=== PATIENT | male | born 1955 | race Caucasian/White ===

== ENCOUNTER → 2016-11-09 | Outpatient (CLI) | payer BC ==
[~2016-11-09] MED LIST: BENZ100C84 PO; LORA10TA5 PO; MONT1TAB5 PO
[2016-11-09 09:39] LABS: HEMATOCRIT 49.3 % (42-52); MEAN CELL VOLUME 86.8 fL (80-100); MEAN CORPUSCULAR HEMOGLOBIN 30.1 pg (25-34); MEAN CORPUSCULAR HGB CONC 34.7 g/dl (32-36); MEAN PLATELET VOLUME 9.2 fL (7.4-10.4); PLATELET COUNT 155 K/uL (130-400); RED BLOOD COUNT 5.68 M/uL (4.7-6.1); WHITE BLOOD COUNT 5.75 K/uL (4.8-10.8)
[2016-11-09 09:48] LABS: ALT/SGPT 27 U/L (12-78); AST/SGOT 13 U/L (15-37); BLOOD UREA NITROGEN 17 mg/dl (7-18); BUN/CREATININE RATIO 17.8 (10-20); CALCIUM 9.4 mg/dl (8.5-10.1); CARBON DIOXIDE 33 mmol/L (21-32); CHLORIDE 105 mmol/L (98-107); CHOLESTEROL 227 mg/dl (0-200); CREATININE 0.95 mg/dl (0.60-1.40); GLUCOSE 92 mg/dl (70-99); POTASSIUM 4.5 mmol/L (3.5-5.1); SODIUM 138 mmol/L (136-145); TRIGLYCERIDES 106 mg/dl (0-150); VERY LOW DENSITY LIPOPROT CALC 21 mg/dl
[2016-11-09 09:56] LABS: ALB/GLOB RATIO 1.3 (0.9-2); ALKALINE PHOSPHATASE 72 U/L (45-117); CHOLESTEROL/HDL RATIO 4.7; HDL CHOLESTEROL 48 mg/dl; LDL CHOLESTEROL CALCULATED 158 mg/dl; PROSTATE SPECIFIC ANTIGEN 0.452 ng/ml (0.000-4.000)
== END | disposition home or self-care (01) ==
LOC: C.LAB1850 07:54
PROVIDERS: ATTEND Internal Medicine
DX: Z12.5 Encounter for screening for malignant neoplasm of prostate (principal); E78.5 Hyperlipidemia, unspecified

== ENCOUNTER 2017-07-25 16:49 | Emergency (ER) | payer BC, OTHER ==
[~2017-07-25] VITALS: Ht 193 cm; Wt 117.9 kg
[~2017-07-25 16:49] MED LIST changes: -LORA10TA5 PO; +LORA10TA6 PO
[2017-07-25 17:02] VITALS: TEMP 37.1; Ht 193 cm; Wt 117.9 kg
--- NOTE | 2017-07-25 17:18 | EMERGENCY ROOM VISIT NOTE ---
History Report prepared by Mckenna: Dean Mora Under the Supervision of: Dr. Nathan Whatley D.O. First contact with patient: 17:06 Chief Complaint: ABDOMINAL PAIN Stated Complaint: LOWER ABDOMINAL PAIN, RT SIDE Nursing Triage Summary: Patient presents ambulatory to triage with c/o abdominal pain that began last night Pain is on the right side Denies fever, nausea, vomiting, diarrhea History of Present Illness The patient is a 62 year old male who presents to the Emergency Room with complaints of worsening right lower quadrant abdominal pain that began last night at 1930 after eating dinner, 22 hours ago. The patient describes the pain as a "constant ache." The pain started to worsen significantly after breakfast this morning. Coughing worsens the pain. There is no radiation to the back. He has not eaten any unusual foods, and denies any shortness of breath or chest pain. Source of History: patient Onset: 22 hours [employer] Position: abdomen (RLQ) Quality: ache Timing: constant, worsening Associated Symptoms: No chest pain, No SOB Review of Systems See HPI for pertinent positives & negatives. A total of 10 systems reviewed and were otherwise negative. Past Medical & Surgical Medical Problems: (1) Pneumonia Family History Cancer Social History Smoking Status: Never Smoker Alcohol Use: occasionally Marital Status: Housing Status: lives with family Occupation Status: employed Current/Historical Medications Scheduled Ciprofloxacin Hcl (Cipro), 500 MG PO BID Cod Liver Oil (Cod Liver Oil), 2 TBS PO DAILY Loratadine (Claritin), 10 MG PO QAM Metronidazole (Flagyl), 500 MG PO TID Valacyclovir HCl (Valacyclovir HCl), 500 MG PO DAILY [Ice Wheat Grass], 1 PO DAILY [Seaweed], 8 TABS PO DAILY Allergies Coded Allergies: NUTS (Verified Allergy, Intermediate, SWELLING, ITCHING IN THROAT, 07/25/17 ) NO KNOWN DRUG ALLERGIES (Verified Allergy, Unknown, ., 10/18/15) Uncoded Nonscreenable Allergen (Verified Allergy, Unknown, ITCHY THROAT, ) SYMPTOMS FROM FRUIT DERIVED FROM TREES. EX: APPLES, PEARS,ETC. AND CARROTS Uncoded Allergies: RAW FRUIT (Allergy, Intermediate, SWELLING, ITCHING IN THROAT, 07/25/17) PEARS, APPLES TREES (Allergy, Unknown, 06/18/02) Physical Exam Vital Signs Date Time Temp Pulse Resp B/P (MAP) Pulse Ox O2 Delivery O2 Flow Rate FiO2 07/25/17 19:46 67 16 112/76 98 07/25/17 18:44 75 16 125/77 98 Room Air 07/25/17 17:02 37.1 84 16 153/89 96 Room Air Physical Exam GENERAL: Patient is awake, alert, and in no acute distress. Patient is resting comfortably and showing no signs of anxiety EYES: The conjunctivae are clear. The pupils are round and reactive. EARS, NOSE, MOUTH AND THROAT: The nose is without any evidence of any deformity. Mucous membranes are moist tongue is midline NECK: The neck is nontender and supple. RESPIRATORY: Normal respiratory effort is noted there is no evidence of wheezing rhonchi or rales CARDIOVASCULAR: Regular rate and rhythm noted there no murmurs rubs or gallops normal S1 normal S2 GASTROINTESTINAL: The abdomen is soft but moderately distended with tenderness in the RUQ, there is minimal tenderness in the RLQ. Hanna's sign is positive Bowel sounds are present in all quadrants. Abdomen is nontender BACK: No midline tenderness or or step-off noted range of motion in flexion extension as well as rotation no signs of muscle spasm noted MUSCULOSKELETAL/EXTREMITIES: There is no evidence of gross deformity full range of motion is noted in the hips and shoulders SKIN: There is no obvious evidence of any rash. There are no petechiae, pallor or cyanosis noted. NEUROLOGIC: Patient is awake alert and oriented x3 Medical Decision & Procedures ER Provider Diagnostic Interpretation: Radiology results as stated below per my review and radiologist interpretation: CHEST ONE VIEW PORTABLE CLINICAL HISTORY: ABDOMINAL PAIN/GI pain COMPARISON STUDY: 09/06/2014 FINDINGS: Moderate cardiac enlargement. Prominent pulmonary vasculature. Minimal basilar atelectasis. IMPRESSION: Congestive heart failure. The above report was generated using voice recognition software. It may contain grammatical, syntax or spelling errors. Electronically signed by: Perez Saba M.D. 07/25/2017 5:43 PM Dictated Date/Time: 07/25/2017 5:42 PM .. GALLBLADDER-ABD LIMITED CLINICAL HISTORY: ABDOMINAL PAIN/GI pain. Nausea. TECHNIQUE: Ultrasound COMPARISON STUDY: None FINDINGS: Normal gallbladder. Common bile duct 5 mm. Fatty infiltration of liver. Poor visibility of the pancreas. Right kidney is negative for hydronephrosis. 2.5 cm lower pole cyst. IMPRESSION: 2.5 cm lower pole right renal cyst. Fatty infiltration of liver. Otherwise negative study. The above report was generated using voice recognition software. It may contain grammatical, syntax or spelling errors. Electronically signed by: Perez Saba M.D. 07/25/2017 6:47 PM Dictated Date/Time: 07/25/2017 6:46 PM ABD/PELVIS IV CONTRAST ONLY CT DOSE: 1516.53 mGy.cm HISTORY: Flank pain right sided pain TECHNIQUE: Multiaxial CT images of the abdomen and pelvis were performed following the use of intravenous contrast. A dose lowering technique was utilized adhering to the principles of ALARA. COMPARISON STUDY: 04/24/2015 FINDINGS: Mild bibasilar atelectatic/infiltrative change. Several stable hepatic and renal cysts. Nonobstructive bowel pattern. Normal appendix. Mild pericolonic infiltrative change inferior and lateral to the inferior margin of the liver. There are several diverticuli in this location this appearance suggesting mild diverticulitis. No evidence for drainable abscess or collection. Kidneys negative for mass or hydronephrosis. Normal adrenal glands. IMPRESSION: 1. Mild pericolonic infiltrative change mid a scending colon adjacent to the right hepatic lobe. 2. This appearance suggests mild localized diverticulitis. 3. No evidence for abscess collection or obstruction. 4. Several small stable hepatic as well as renal cysts. 5. Study is otherwise unremarkable. 6. Mild bibasilar atelectatic and/or infiltrative change. The above report was generated using voice recognition software. It may contain grammatical, syntax or spelling errors. Electronically signed by: Perez Saba M.D. 07/25/2017 7:22 PM Dictated Date/Time: 07/25/2017 7:14 PM Laboratory Results 07/25/17 17:25 Red Blood Count 5.48, Mean Corpuscular Volume 88.5, Mean Corpuscular Hemoglobin 31.6, Mean Corpuscular Hemoglobin Concent 35.7, Mean Platelet Volume 9.3, Neutrophils (%) (Auto) 68.2, Lymphocytes (%) (Auto) 23.7, Monocytes (%) (Auto) 5.9, Eosinophils (%) (Auto) 1.3, Basophils (%) (Auto) 0.2, Neutrophils # (Auto) 5.92, Lymphocytes # (Auto) 2.06, Monocytes # (Auto) 0.51, Eosinophils # (Auto) 0.11, Basophils # (Auto) 0.02 07/25/17 17:25 Test 07/25/17 17:25 White Blood Count 8.68 K/uL (4.8-10.8) Red Blood Count 5.48 M/uL (4.7-6.1) Hemoglobin 17.3 g/dL (14.0-18.0) Hematocrit 48.5 % (42-52) Mean Corpuscular Volume 88.5 fL (80-100) Mean Corpuscular Hemoglobin 31.6 pg (25-34) Mean Corpuscular Hemoglobin Concent 35.7 g/dl (32-36) Platelet Count 133 K/uL (130-400) Mean Platelet Volume 9.3 fL (7.4-10.4) Neutrophils (%) (Auto) 68.2 % Lymphocytes (%) (Auto) 23.7 % Monocytes (%) (Auto) 5.9 % Eosinophils (%) (Auto) 1.3 % Basophils (%) (Auto) 0.2 % Neutrophils # (Auto) 5.92 K/uL (1.4-6.5) Lymphocytes # (Auto) 2.06 K/uL (1.2-3.4) Monocytes # (Auto) 0.51 K/uL (0.11-0.59) Eosinophils # (Auto) 0.11 K/uL (0-0.5) Basophils # (Auto) 0.02 K/uL (0-0.2) RDW Standard Deviation 41.8 fL (36.4-46.3) RDW Coefficient of Variation 12.9 % (11.5-14.5) Immature Granulocyte % (Auto) 0.7 % Immature Granulocyte # (Auto) 0.06 K/uL (0.00-0.02) Urine Color YELLOW Urine Appearance CLEAR (CLEAR) Urine pH 5.0 (4.5-7.5) Urine Specific [place] 1.021 (1.000-1.030) Urine Protein NEG (NEG) Urine Glucose (UA) NEG (NEG) Urine Ketones NEG (NEG) Urine Occult Blood NEG (NEG) Urine Nitrite NEG (NEG) Urine Bilirubin NEG (NEG) Urine Urobilinogen NEG (NEG) Urine Leukocyte Esterase NEG (NEG) Anion Gap 5.0 mmol/L (3-11) Est Creatinine Clear Calc Drug Dose 95.1 ml/min Estimated GFR () 80.3 Estimated GFR (Non- 69.3 BUN/Creatinine Ratio 17.0 (10-20) Calcium Level 9.5 mg/dl (8.5-10.1) Total Bilirubin 0.4 mg/dl (0.2-1) Direct Bilirubin 0.1 mg/dl (0-0.2) Aspartate Amino Transf (AST/SGOT) 25 U/L (15-37) Alanine Aminotransferase (ALT/SGPT) 32 U/L (12-78) Alkaline Phosphatase 81 U/L (45-117) Troponin I < 0.015 ng/ml (0-0.045) Pro-B-Type Natriuretic Peptide 26 pg/ml (0-900) Total Protein 7.7 gm/dl (6.4-8.2) Albumin 3.9 gm/dl (3.4-5.0) Lipase 157 U/L (73-393) Chemistry Specimen Hemolysis Laboratory results per my review. Medications Administered Medications (Trade) Dose Ordered Sig/Julio César Route Start Time Stop Time Status Last Admin Dose Admin Sodium Chloride 1,000 ml @ 999 mls/hr Q1H1M STAT IV 07/25/17 17:24 07/25/17 18:24 DC 07/25/17 17:24 999 MLS/HR Ciprofloxacin (Cipro Tab) 500 mg NOW STAT PO 07/25/17 19:26 07/25/17 19:27 DC 07/25/17 19:26 500 MG Metronidazole (Flagyl Tab) 500 mg NOW STAT PO 07/25/17 19:26 07/25/17 19:27 DC 07/25/17 19:26 500 MG ECG Per My Interpretation Indication: abdominal pain Rate (beats per minute): 90 Rhythm: normal sinus Findings: other (No ROESTTE/STD, no PVC) Comparison ECG Date: 09/06/2014 Change: no significant change ED Course 1711: The patient was evaluated in room B4B. A complete history and physical examination were performed. 4: Ordered Sodium Chloride 1000 mL @ 999 mL/hr IV. 1852: I checked on the patient at this time. I discussed the need for a CT scan of the abdomen. 6: Ordered Flagyl 500 mg PO, Ciprofloxacin 500 mg PO. 1: Upon reevaluation, the patient is resting in bed. I discussed the results and treatment plan with him. He verbalized agreement of the treatment plan. The patient was discharged home. Medical Decision Differential diagnosis: Etiologies such as appendicitis, diverticulitis, PUD, biliary pathology, UTI, pancreatitis, obstruction, mesenteric ischemia, aortic pathology, infections, inflammatory bowel disease, renal colic, as well as others were entertained. Nursing notes reviewed. The patient is a 62-year-old male who presented to the emergency department for an evaluation of right-sided abdominal pain. The patient had a history and physical exam that initially I thought was consistent with cholecystitis. Ultrasound of the gallbladder did not reveal signs of cholecystitis and his laboratory results did not reveal an elevated white blood cell count or abnormal LFTs. Because of this a CT the abdomen and pelvis was ordered. This did appear to show signs of right-sided diverticulitis. I discussed the patient 's laboratory and radiographic studies with him. He was treated with IV fluids as well as antibiotics. He was reevaluated multiple times. I discussed patient 's condition with him and encouraged him to continue all medications as prescribed and follow-up with his family doctor for further evaluation. 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 He was also encouraged to return to the emergency department immediately if symptoms change worsen or the need arises. Medication Reconcilliation Current Medication List: was personally reviewed by me Blood Pressure Screening Patient's blood pressure: Elevated blood pressure Blood pressure disposition: Elevated BP felt to be situational Impression Primary Impression: Right sided abdominal pain Additional Impression: Diverticulitis Scribe Attestation The scribe's documentation has been prepared under my direction and personally reviewed by me in its entirety. I confirm that the note above accurately reflects all work, treatment, procedures, and medical decision making performed by me. Departure Information Dispostion Home / Self-Care Prescriptions Metronidazole (FLAGYL) 500 Mg Tab 500 MG PO TID, #30 TAB Prov: Nathan Whatley, DO 07/25/17 Ciprofloxacin Hcl (CIPRO) 500 Mg Tab 500 MG PO BID, #20 TAB Prov: Nathan Whatley, DO 07/25/17 Referrals Marcial Sharif M.D. (PCP) Forms Call Back Authorization, HOME CARE DOCUMENTATION FORM, IMPORTANT VISIT INFORMATION Patient Instructions My [facility] Additional Instructions Call your family doctor to schedule a follow-up appointment. You may require a referral to a grapple yarder operator when symptoms have resolved. Continue using Motrin and Tylenol as directed for pain. Return to the emergency department immediately if symptoms change worsen or the need arises. Specifically if develop severe abdominal pain rigid abdomen high fever or if the need arises. Problem Qualifiers
[2017-07-25] MEDS ORDERED: SODIUM CHLORIDE 0.9% 1000ML 1,000 ML IV STA (17:24)
[2017-07-25 17:31] LABS: BASO % 0.2 %; BASO ABS # 0.02 K/uL (0-0.2); EOS % 1.3 %; EOS ABS # 0.11 K/uL (0-0.5); HEMATOCRIT 48.5 % (42-52); HEMOGLOBIN 17.3 g/dL (14.0-18.0); IG# 0.06 K/uL (0.00-0.02); LYMPH % 23.7 %; LYMPH ABS # 2.06 K/uL (1.2-3.4); MEAN CELL VOLUME 88.5 fL (80-100); MEAN CORPUSCULAR HEMOGLOBIN 31.6 pg (25-34); MEAN CORPUSCULAR HGB CONC 35.7 g/dl (32-36); MEAN PLATELET VOLUME 9.3 fL (7.4-10.4); MONO % 5.9 %; MONO ABS # 0.51 K/uL (0.11-0.59); NEUT % 68.2 %; NEUT ABS # 5.92 K/uL (1.4-6.5); PLATELET COUNT 133 K/uL (130-400); RED CELL DISTRIBUTION WIDTH CV 12.9 % (11.5-14.5); RED CELL DISTRIBUTION WIDTH SD 41.8 fL (36.4-46.3); WHITE BLOOD COUNT 8.68 K/uL (4.8-10.8)
[2017-07-25] MEDS ORDERED: COD1OIL4 PO (17:38)
[2017-07-25] MEDS ORDERED: VLT500 PO (17:38)
[2017-07-25] MEDS ORDERED: [UNRECOGNIZED DRUG - OTHER] PO (17:38)
[2017-07-25] MEDS ORDERED: SEAWEED PO (17:38)
--- NOTE | 2017-07-25 17:44 | DIAGNOSTIC IMAGING REPORT ---
CHEST ONE VIEW PORTABLE CLINICAL HISTORY: ABDOMINAL PAIN/GI pain COMPARISON STUDY: 09/06/2014 FINDINGS: Moderate cardiac enlargement. Prominent pulmonary vasculature. Minimal basilar atelectasis. IMPRESSION: Congestive heart failure. The above report was generated using voice recognition software. It may contain grammatical, syntax or spelling errors. Electronically signed by: Perez Saba M.D. 07/25/2017 5:43 PM Dictated Date/Time: 07/25/2017 5:42 PM
[2017-07-25 18:02] LABS: ALBUMIN 3.9 gm/dl (3.4-5.0); CALCIUM 9.5 mg/dl (8.5-10.1); CREATININE 1.13 mg/dl (0.60-1.40); POTASSIUM 4.2 mmol/L (3.5-5.1); TOTAL PROTEIN 7.7 gm/dl (6.4-8.2)
--- NOTE | 2017-07-25 18:48 | DIAGNOSTIC IMAGING REPORT ---
GALLBLADDER-ABD LIMITED CLINICAL HISTORY: ABDOMINAL PAIN/GI pain. Nausea. TECHNIQUE: Ultrasound COMPARISON STUDY: None FINDINGS: Normal gallbladder. Common bile duct 5 mm. Fatty infiltration of liver. Poor visibility of the pancreas. Right kidney is negative for hydronephrosis. 2.5 cm lower pole cyst. IMPRESSION: 2.5 cm lower pole right renal cyst. Fatty infiltration of liver. Otherwise negative study. The above report was generated using voice recognition software. It may contain grammatical, syntax or spelling errors. Electronically signed by: Perez Saba M.D. 07/25/2017 6:47 PM Dictated Date/Time: 07/25/2017 6:46 PM
[2017-07-25] MEDS ORDERED: OPTIRAY 320 IV PRN (19:00)
--- NOTE | 2017-07-25 19:24 | DIAGNOSTIC IMAGING REPORT ---
ABD/PELVIS IV CONTRAST ONLY CT DOSE: 1516.53 mGy.cm HISTORY: Flank pain right sided pain TECHNIQUE: Multiaxial CT images of the abdomen and pelvis were performed following the use of intravenous contrast. A dose lowering technique was utilized adhering to the principles of ALARA. COMPARISON STUDY: 04/24/2015 FINDINGS: Mild bibasilar atelectatic/infiltrative change. Several stable hepatic and renal cysts. Nonobstructive bowel pattern. Normal appendix. Mild pericolonic infiltrative change inferior and lateral to the inferior margin of the liver. There are several diverticuli in this location this appearance suggesting mild diverticulitis. No evidence for drainable abscess or collection. Kidneys negative for mass or hydronephrosis. Normal adrenal glands. IMPRESSION: 1. Mild pericolonic infiltrative change mid a scending colon adjacent to the right hepatic lobe. 2. This appearance suggests mild localized diverticulitis. 3. No evidence for abscess collection or obstruction. 4. Several small stable hepatic as well as renal cysts. 5. Study is otherwise unremarkable. 6. Mild bibasilar atelectatic and/or infiltrative change. The above report was generated using voice recognition software. It may contain grammatical, syntax or spelling errors. Electronically signed by: Perez Saba M.D. 07/25/2017 7:22 PM Dictated Date/Time: 07/25/2017 7:14 PM
[2017-07-25] MEDS ORDERED: METRONIDAZOLE 250 MG TAB PO STA (19:26)
[2017-07-25] MEDS ORDERED: CIPROFLOXACIN 500 MG TAB PO STA (19:26)
[2017-07-25] MEDS ORDERED: CIPR-255 PO (19:27)
[2017-07-25] MEDS ORDERED: METR-162 PO (19:27)
[2017-07-25 19:46] VITALS: BP 112/76; PULSE 67; O2SAT 98
== END 2017-07-25 19:47 | disposition home or self-care (01) ==
LOC: C.EDB 16:51
DX: R10.31 Right lower quadrant pain (principal); K57.92 Diverticulitis of intestine, part unspecified, without perforation or abscess without bleeding; Z87.01 Personal history of pneumonia (recurrent); Z80.9 Family history of malignant neoplasm, unspecified; Z79.899 Other long term (current) drug therapy; Z91.018 Allergy to other foods

== ENCOUNTER → 2017-09-23 | Outpatient (CLI) | payer OTHER ==
[~2017-09-23] MED LIST changes: -BENZ100C84 PO; +CIPR-255 PO; +COD1OIL4 PO; -MONT1TAB5 PO; +OPTIRAY 320 IV PRN; +SEAWEED PO; +VLT500 PO; +[UNRECOGNIZED DRUG - OTHER] PO
--- NOTE | 2017-09-23 12:16 | DIAGNOSTIC IMAGING REPORT ---
ABD/PELVIS IV AND ORAL CONT CLINICAL HISTORY: 62 years-old Male presenting with ACUTE DIVERTICULITIS, no surgery. TECHNIQUE: Multidetector CT of the abdomen and pelvis was performed after the administration of oral and intravenous contrast. IV contrast: 92 mL of Optiray 320. A dose lowering technique was used consistent with the principles of ALARA (as low as reasonably achievable). COMPARISON: 07/25/2017. CT DOSE (mGy.cm): The estimated cumulative dose is 1343.28 mGy.cm. 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 Lung bases: Minimal basilar opacities, likely atelectasis. Normal heart size. Coronary artery calcification. No pericardial or pleural effusion. Liver: Congenital hypoplasia of the medial segments of the left hepatic lobe. Multiple well-defined hypodense lesions likely hepatic cysts or hamartomas. Patent hepatic vasculature. Biliary: No intrahepatic or extrahepatic biliary ductal dilatation. Normal gallbladder. Pancreas: Moderate parenchymal atrophy. Spleen: Top normal in size. Adrenal glands: Normal. Kidneys and ureters: Multiple well-defined hypodense lesions in the kidneys likely cysts though some too small to characterize. Punctate nonobstructing calculi at the upper pole the right kidney noted. No hydronephrosis. Ureters normal. Bladder: Incompletely evaluated secondary to underdistention. Pelvic organs: Prostate enlargement likely secondary to benign prostatic hyperplasia. Bowel: The previously noted pericolonic inflammatory change has resolved. Minimal residual peritoneal thickening along the inferior right hepatic lobe adjacent to the hepatic flexure. No colonic wall thickening or strictly pericolonic inflammatory change. The appendix is normal. No bowel obstruction. Peritoneal cavity: No free fluid or intraperitoneal gas. Lymph nodes: No enlarged lymph nodes in the abdomen or pelvis. Vasculature: Atherosclerosis of the normal caliber abdominal aorta. IVC patent. Abdominal wall: Small fat-containing umbilical hernia. Musculoskeletal: Normal. IMPRESSION: 1. Resolution of previously noted inflammatory changes near the hepatic flexure of the colon. Trace residual peritoneal thickening in this region likely scarring or postinflammatory change. No convincing evidence of acute intra-abdominal pathology. 2. Nonobstructing punctate right renal calculi. 3. Top normal spleen size. Electronically signed by: Azam Bledsoe M.D. 09/23/2017 12:15 PM Dictated Date/Time: 09/23/2017 12:08 PM
== END | disposition home or self-care (01) ==
LOC: C.CTS 11:31
PROVIDERS: ATTEND Internal Medicine
DX: K57.92 Diverticulitis of intestine, part unspecified, without perforation or abscess without bleeding (principal); K57.90 Diverticulosis of intestine, part unspecified, without perforation or abscess without bleeding; N20.0 Calculus of kidney

== ENCOUNTER 2022-05-08 05:06 | Observation (INO) ==
--- NOTE | 2022-03-07 09:09 | PAT Medication Instructions ---
Medication Instructions Date of Service March 07, 2022 Home Medications zinc 50 mg tablet 50 mg PO QAM Lactobacillus acidophilus-Bifidobac.animalis 2.5 billion cell capsule (Daily Probiotic) 1 cap PO QAM alpha lipoic acid 600 mg capsule 600 mg PO QAM coenzyme Q10 200 mg capsule 200 mg PO QAM loratadine 10 mg tablet (Claritin) 10 mg PO QAM omega-3 fatty acids-fish oil 360 mg-1,200 mg capsule (Fish Oil) 1 cap PO QAM ezetimibe 10 mg tablet 10 mg PO QAM valacyclovir 1 gram tablet 1,000 mg PO TID PRN valacyclovir 500 mg tablet 500 mg PO QAM STOP taking 2 weeks before surgery alpha lipoic acid 600 mg capsule 600 mg PO QAM coenzyme Q10 200 mg capsule 200 mg PO QAM omega-3 fatty acids-fish oil 360 mg-1,200 mg capsule (Fish Oil) 1 cap PO QAM DO NOT take the morning of surgery zinc 50 mg tablet 50 mg PO QAM Lactobacillus acidophilus-Bifidobac.animalis 2.5 billion cell capsule (Daily Probiotic) 1 cap PO QAM loratadine 10 mg tablet (Claritin) 10 mg PO QAM Take morning of surgery With a small sip of water, OTHERWISE NOTHING TO EAT OR DRINK AFTER MIDNIGHT: ezetimibe 10 mg tablet 10 mg PO QAM valacyclovir 1 gram tablet 1,000 mg PO TID PRN(if needed) valacyclovir 500 mg tablet 500 mg PO QAM Take evening before surgery valacyclovir 1 gram tablet 1,000 mg PO TID PRN(if needed) Other Notes If you have any questions please call us at [phone] or [phone] or [phone] or [phone]
--- NOTE | 2022-03-12 09:44 | Anesthesiology Consultation ---
Date of Service March 12, 2022 Assessment & Plan (1) Encounter for pre-operative examination: - COVID screening: Per assessment on 03/12: No known COVID-19 positive contacts or current COVID-19 related symptoms. Travel screen- planned travel to [place] (04/09- 04/12). Patient vaccinated. At surgeon discretion if preop Covid testing being done. - Outpatient joint assessment: Pt currently scheduled for inpatient pathway. If surgeon requests review for outpatient joint pathway, patient is acceptable candidate for outpatient joint program from anesthesia standpoint pending surgeon's office assessment of pt motivation/strong home support/completion of same day joint program preop requirements. Chart Review Chart Review: Acceptable Risk for Surgery and Patient seen in Pre Admission Testing History Surgery Operation Date: 05/08/22 07:00 Proposed Procedures p Right Total Knee Arthroplasty - Baldemar Bernal MD Height/Weight Height: 6 ft 4 in Weight: 117.1 kg Allergies Allergy/AdvReac Type Severity Reaction Status Date / Time nut - unspecified Allergy Intermediate Swelling, Verified 03/06/22 11:48 throat itchiness polymyxin B Allergy Unknown itchy Verified 03/06/22 11:48 RAW FRUIT Allergy Intermediate Swelling, Uncoded 03/06/22 11:48 throat itchiness TREES Allergy Unknown Unknown Uncoded 03/06/22 11:48 Uncoded Nonscreenable Allergy Unknown Itchy Uncoded 03/12/22 09:39 Allergen throat Medications Home Medications Medication Instructions Recorded Confirmed Last Taken zinc 50 mg tablet 50 mg PO QAM 03/30/20 03/06/22 Unknown Lactobacillus 1 cap PO QAM 05/19/20 03/06/22 Unknown acidophilus-Bifidobac.animalis 2.5 billion cell capsule (Daily Probiotic) alpha lipoic acid 600 mg capsule 600 mg PO QAM 05/19/20 03/06/22 Unknown coenzyme Q10 200 mg capsule 200 mg PO QAM 05/19/20 03/06/22 Unknown loratadine 10 mg tablet (Claritin) 10 mg PO QAM 05/19/20 03/06/22 Unknown omega-3 fatty acids-fish oil 360 1 cap PO QAM 05/19/20 03/06/22 Unknown mg-1,200 mg capsule (Fish Oil) ezetimibe 10 mg tablet 10 mg PO QAM 03/06/22 03/06/22 Unknown valacyclovir 1 gram tablet 1,000 mg PO TID PRN shingles 03/06/22 03/06/22 Unknown valacyclovir 500 mg tablet 500 mg PO QAM 03/06/22 03/06/22 Unknown Wheeled Walker #1 ea 03/12/22 03/12/22 Unknown Past Medical History Medical History Diverticulosis History of diverticulitis History of kidney stones History of migraine HLD (hyperlipidemia) Osteoarthritis Right knee DJD Exercise / Class Metabolic Activity II 4-5 Yardwork/Stairs/Walk up hill (one FS (no CP, no SOB)) Past Family History Family History Other No family history of adverse response to anesthesia Denies family history of Ovarian cancer Prostate cancer Myocardial infarction Breast cancer Colorectal cancer Past Surgical History Surgical History History of ankle surgery History of arthroscopy of right knee History of colonoscopy History of wisdom tooth extraction Hx of LASIK Past Anesthesia History No Hx of Anesthesia Complications and No Family Hx of Anesthesia Complications History of PONV No Hx of PONV and No Hx of Motion Sickness Social History Smoking Status: Never smoker Do You Dip or Chew Tobacco: No Hx Alcohol Use: Yes alcohol intake frequency: holidays/special occasions only Hx Substance Use: No substance use type: does not use Review of Systems Patient denies chest pain, shortness of breath, dyspnea on exertion, fever, chills, cough, wheezing, palpitations. Physical Exam Vital Signs VITALS BP 112/73 P 83 TEMP 98.0 SP02 96%RA RESP 18 PHYSICAL Full cervical extension range of motion. Full TMJ range of motion. TMD 3 finger breaths Mallampati Score 3 Dentition: intact, + caps Lungs: clear throughout to auscultation Cardiac: regular rate and rhythm, no murmurs noted Spine: normal Carotid arteries: negative bruit Extremities: no edema Lab Results Anesthesia Preop Results Results Anesthesia Widget: WBC 6.50 K/ul (4.8-10.8) 03/12/22 Hgb 17.4 g/dl (14.0-18.0) 03/12/22 Hct 48.4 % (40.1-51.0) 03/12/22 Plt 191 K/uL (130-400) 03/12/22 Na 137 mmol/L (136-145) 03/12/22 K 3.9 mmol/L (3.5-5.1) 03/12/22 Cl 105 mmol/L (98-107) 03/12/22 CO2 26 mmol/L (21-32) 03/12/22 BUN 20 mg/dl (6-23) 03/12/22 Creat 0.91 mg/dl (0.6-1.4) 03/12/22 Glucose Level 121 mg/dl (70-99(Fasting)) H 03/12/22 PT 10.9 Seconds (9.0-12.0) 03/12/22 PTT 27.0 Seconds (21.0-31.0) 03/12/22 INR 1.0 (0.9-1.1) 03/12/22 Blood Type A Positive 03/12/22 Antibody Screen NEGATIVE 03/12/22 Testing Electrocardiogram Date: 03/12/22 Findings: + NSR @ (83) Chest X-Ray Date: 03/12/22 FINDINGS: Lung volumes are normal. Lungs are clear. There is no pneumothorax or pleural effusion. Cardiac size is stable. Mediastinal contours are normal. There is no evidence for pulmonary edema. IMPRESSION: No acute cardiopulmonary findings. COVID-19 Risk Screen Screening Information COVID-19 Screen Date: 03/12/22 Exposure 21 Days Family/Household +COVID Last 21 Days: No Exposure 10 Days Any COVID Exposure Last 10 Days: No Symptoms Last 10 Days Experienced COVID Sx Last 10 Days: No + COVID 0-90 Days COVID + in Last 0-90 Days: No
--- NOTE | 2022-05-05 09:05 | History and Physical Report ---
CHIEF COMPLAINT: Right knee pain and discomfort. HISTORY OF PRESENT ILLNESS: The patient is a 67-year-old gentleman who presents for surgical treatme nt of his right knee. He has got a long history of bilateral knee pain and discomfort that has gradua lly gotten worse over time. He had his right knee scoped about 14 years ago, which helped him for ab out 10 years. Over the past 4 years, he developed increased pain and discomfort in his knee. He enj oys playing golf and having more and more difficulty doing that. He has been through extensive conse rvative treatment including injections and medications, which have become less successful over time. He would like to have his knee fixed. PAST MEDICAL HISTORY: Significant for kidney stones. PAST SURGICAL HISTORY: Includes: 1. Right knee arthroscopy 14 years ago. 2. Left knee arthroscopy. 3. Ankle cyst removal, large ganglion cyst. ALLERGIES: AND TREES. CURRENT MEDICATIONS: Includes: 1. Coenzyme Q. 2. Alpha-lipoic acid. 3. Ezetimibe. 4. Probiotic. 5. Claritin. 6. [place] Fish oil. 7. Valacyclovir. 8. Zinc. SOCIAL HISTORY: A 67-year-old male. 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 He is . Plays golf. Does not smoke. FAMILY HISTORY: Noncontributory. REVIEW OF SYSTEMS: Negative for diabetes. No chest pain or shortness of breath. No history of DVT or PE. PHYSICAL EXAMINATION: GENERAL: Shows a fairly tall, large middle-aged male. Looks to be in pretty good health. HEENT: Benign. NECK: Supple. No lymphadenopathy. LUNGS: Clear to auscultation. HEART: Regular rate and rhythm. ABDOMEN: Soft, nontender, nondistended. EXTREMITIES: Grossly neurovascularly intact except as follows. Examination of the right knee revealed patient walks with just a slight bit of a limp. He has got we ll-healed portal sites around his knee. Moderate size joint effusion. He has got varus alignment. Range of motion is 5-125. No instability. No pain with hip motion. X-RAYS: X-rays of the knee from previously reviewed. It shows advanced right knee degenerative join t disease. He has got complete loss of medial joint space. He has got osteophytes primarily medial. He has a little bit of tibial femoral subluxation. ASSESSMENT: A 67-year-old male, avid golfer with a long history of knee pain and discomfort, has got ten worse over time. He has got advanced right knee arthritis. He would like to proceed with surgic al treatment. PLAN: We will proceed with right knee replacement. The risks and benefits of this procedure were ex plained to the patient and include but not limited to DVT, PE, , infection, neurological injury, vascular injury, bleeding problem, pain, limited range of motion, stiffness, incomplete relief of sy mptoms, etc. The patient understands and desires to proceed. Informed consent was obtained. As far as discharge plans, he is planning to be discharged to home with home health in his 's ass istance. We will see him back 2 weeks postop. Job ID: [id number]
[2022-05-08] MEDS ORDERED: LR 60ML/HR IV SCH (06:00)
[2022-05-08] MEDS ORDERED: METOCLOPRAMIDE HCL 10 MG TABLET PO SCH (06:00)
[2022-05-08] MEDS ORDERED: TRANEXAMIC ACID 1,000 MG **IV Intra-op IV SCH (06:00)
[2022-05-08] MEDS ORDERED: ceFAZolin 2000MG 2,000 MG/15 ML SYR IV SCH (06:00)
[2022-05-08] MEDS ORDERED: Scopolamine 1 MG TDSY TD SCH (06:00)
[2022-05-08] MEDS ORDERED: FAMOTIDINE 20 MG TAB PO SCH (06:00)
[2022-05-08] MEDS ORDERED: ACETAMINOPHEN 500 MG TAB PO SCH (06:00)
[2022-05-08] MEDS ORDERED: LR 500ML BOLUS, THEN 15ML/HR IV SCH (06:00)
[2022-05-08] MEDS ORDERED: CeleBREX 200 MG CAP PO SCH (06:00)
[2022-05-08] MEDS ORDERED: BUPIVACAINE LIPOSOME/PF 266 MG, BUPIVACAINE/EPINEPHRINE 50 ML, SODIUM CHLORIDE 0.9% 30 ... INFIL SCH (06:00)
[2022-05-08] MEDS ORDERED: ROPIVACAINE 0.5% 5 MG/ML 30 ML VIAL ONE (06:32)
[2022-05-08] MEDS ORDERED: BUPIVACAINE 0.5 % 5 MG/1 ML PF 10ML VIAL ONE (06:32)
[2022-05-08] MEDS ORDERED: BUPIVACAINE/EPINEPHRINE 0.25% 1:200,000 30 ML VIAL ONE (06:33)
[2022-05-08] MEDS ORDERED: SODIUM CHLORIDE 0.9% PF 50 ML VIAL ONE (06:33)
[2022-05-08] MEDS ORDERED: BUPIVACAINE LIPOSOME 1.3% 266 MG/20 ML VIAL ONE (06:34)
[2022-05-08] MEDS ORDERED: MIDAZOLAM HCL 1 MG/ML 2ML VIAL ONE (06:40)
[2022-05-08] MEDS ORDERED: fentaNYL citrate 100 MCG/2 ML VIAL ONE (06:40)
[2022-05-08] MEDS ORDERED: PROPOFOL IV EMULSION 10 MG/ML 20 ML VIAL IV ONE ×2 (06:48→08:28)
--- NOTE | 2022-05-08 06:49 | History & Physical Bridge Note ---
Date of Service May 08, 2022 History & Physical Bridge Note I have examined the patient, reviewed the History & Physical and in the interval since the performance of the History & Physical I have noted the following changes of clinical significance: no changes noted
[2022-05-08] MEDS ORDERED: ONDANSETRON INJ 2 MG/ML 2 ML VIAL IV PRN ×2 (07:12→10:11)
[2022-05-08] MEDS ORDERED: ATROPINE SULFATE 0.1 MG/ML 10ML SYR IV PRN (07:12)
[2022-05-08] MEDS ORDERED: ePHEDrine sulfate 50 MG/ML AMP IV PRN (07:12)
[2022-05-08] MEDS ORDERED: fentaNYL citrate 100 MCG/2 ML VIAL IV PRN (07:12)
[2022-05-08] MEDS ORDERED: ONDANSETRON INJ 2 MG/ML 2 ML VIAL ONE ×2 (07:37→08:31)
[2022-05-08] MEDS ORDERED: KETAMINE 50 MG/5 ML SYRINGE ONE (08:26)
[2022-05-08] MEDS ORDERED: GLYCOPYRROLATE 0.2 MG/ML VIAL ONE (08:31)
[2022-05-08] MEDS ORDERED: PHENYLEPHRINE HCL 10 MG/ML VIAL ONE (08:42)
--- NOTE | 2022-05-08 08:56 | Operative Report ---
PG Post Operative Report Pre & Post Diagnosis Operation Date: 05/08/22 07:00 Pre-Op Diagnosis: Right Knee Advanced Degenerative Joint Disease Post-Op Diagnosis: Right Knee Advanced Degenerative Joint Disease I identified the patient and participated in the time-out.: Yes Procedure Operation Date: 05/08/22 07:00 Actual Procedures p Right Total Knee Arthroplasty(Right) - Baldemar Bernal MD Surgeon Baldemar Bernal MD Lathe Scalper Operator Aaron Souza PA-C Estimated Blood Loss 50 Findings Consistent with Post-Op Diagnosis Operative findings real advanced right knee DJD. He had grade 4 [id number] disease of the medial femoral condyle medial tibial plateau. He had some spotty grade 4 changes laterally lateral and patellofemoral compartments. He had tibiofemoral subluxation with eminence impingement on the lateral femoral condyle. Moderate-sized joint effusion. Fluids 1300 cc Specimens Right knee sent for pathology Drains None Anesthesia Type Spinal MAC Complications none Disposition Accompanied Patient To Recovery: No Indications Patient is 67-year-old fairly active gentleman is had a long history of bila teral knee pain discomfort. He has been through extensive conservative treatment including knee arthroscopies many years ago. Over time his arthritis is progressed. He failed conservative measures. He elected proceed with total knee arthroplasty. Description of Procedure Operative implants consist of: 1 Biomet Vanguard size 75 right posterior stabilized femoral component. 2. Biomet size 79 tibial tray. 3. 12 mm posterior stabilized polyethylene insert. 4. 34 x 8 and half all Paller patella. The patient was taken the operating, identified, placed on the operating table supine position. All contact areas were appropriately padded. IV antibiotics tried by anesthesia team. Spinal anesthetic and abductor canal block had been provided in the holding area. Ojeda catheter was placed in sterile fashion. Right thigh tent was then placed in the right lower extremities then prepped and draped in usual sterile fashion. The right leg was elevated exsanguinated with use of an Esmarch and the tourniquet was set at 300 mmHg. An anterior approach of the right knee was then performed to longitudinal incision centered over the patella. Sharp dissection was carried through subcutaneous tissue down the extensor mechanism. Medial parapatellar arthrotomy incision was made. Some subperiosteal dissection was carried out medially. The fat pad was resected from Neath patella tendon. Lateral patellofemoral ligament was released. Patella subluxated laterally and the knee was flexed. The osteophytes taken off distal femur. The ACL and PCL were then released from distal femur and the tibia subluxated anteriorly. External tibial alignment jig was then placed in the interface the tibia and adjusted 14 mm medially. Proximal tibial cut was made to remove about a millimeter bone from the most deficient aspect medial tibial plateau. Some osteophytes taken off medial and posterior medially. The tibia was then sized to a size 79. Attention drawn the femur. The distal femur examined the sharp drill. Intramedullary canal was suction. A right 6 degree valgus cutting guide was placed. This femoral cutting block was pinned in place. Distal femoral cut was made to take an additional 3 mm of bone off distal femur. The femur was then sized to a size 75. The AP cutting block was pinned parallel to the epicondylar axis which was 4 degrees of external rotation. The anterior cut, anterior chamfer, posterior cut, posterior chamfer cuts were made. The box cutting guide was placed in just slight lateral box cut was made. The knee was flexed. The remnants of the medial and lateral menisci were excised. The osteophyte taken off the posterior aspect the femur. A trial femoral component was placed. The tibial tray was pinned in maximum external rotation and the drill and stem punch were used to create defect in proximal tibia for the tibial tray. Knee was then trialed and the 12 mm insert fit most appropriately. Attention drawn the patella. The patella was cleaned of all soft tissues. Patella thickness measured 23 mm in thickness was cut down to 15 to a size a size 34 patella. The lug holes were drilled for the 34 patella. Lateral osteophytes removed. Patella button was placed. Knee was taken through range of motion and the patella tracked nicely with no thumbs test. Attention drawn to place the permanent components. Nupathe all trial components were removed. Bone plug was placed in the distal femur limit blood loss. Double batch [place] G cement was mixed. A Biomet Vanguard size 75 right posterior stabilized femoral component, size 79 tibial tray, 12 mm posterior stabilized polyethylene insert, and a 34 x 8 and half all Paller patella then cemented in place. The knee was brought out into full extension until cement hardened. Final cement check was then performed. Pericapsular tissues were injected with total 100 cc of combination of 20 cc of Exparel, 30 cc normal saline, 50 cc of quarter percent Marcaine with epinephrine. Patient did receive 1 g tranexamic acid. The tourniquet was then let down for final turn time of 59 minutes. Hemostasis assured use electrocautery. Extensor mechanism closed with combination 1 PDS suture #1 Vicryl suture in [id number] fashion. Extensor mechanism checked found to be intact with subcutaneous tissue then closed with 2 Dexon suture in a buried interrupted fashion skin was closed skin yari. Legs then cleaned and dried a sterile dressing was Xeroform, 4 x 4's, sterile cast padding, Donny bandage were applied. Patient then transferred to the recovery room in stable condition. Patient tolerated the procedure well and there were no complications. Aaron Souza, my physician delinquent tax collector assistant, was present for the entire procedure. His assistance was essential and required for appropriate patient positioning, prepping and draping, surgical exposure, performing the technical details of the operation, placement the implants, closure of the wound, and placement of the sterile bandage. I attest to the content of the Intraoperative Record and any orders documented therein. Any exceptions are noted below.
--- NOTE | 2022-05-08 09:26 | XRay Report ---
XR knee RT 1 or 2V routine CLINICAL HISTORY: Surgical Post Op TECHNIQUE: 2 views of the right knee were obtained. Comparison: Comparison is made to knee radiographs 12/14/2021 FINDINGS: Patient is status post total knee arthroplasty with expected postsurgical changes including soft tiss ue swelling and subcutaneous emphysema. No periarticular lucency or hardware fracture is seen. IMPRESSION: Expected postoperative appearance status post placement of total knee arthroplasty. ACT 112: Negative or not required by law. Electronically signed by: Thor Ramos M.D. 05/08/2022 9:24 AM
[2022-05-08] MEDS ORDERED: ALUMINUM/MAGNESIUM SUSP 30 ML UDC PO PRN (10:11)
[2022-05-08] MEDS ORDERED: NON-FORMULARY MEDICATION (Coenzyme Q10 200 mg capsule) PO SCH (10:11)
[2022-05-08] MEDS ORDERED: bisacodyL 10 MG SUPP PR PRN (10:11)
[2022-05-08] MEDS ORDERED: DOCUSATE SODIUM/SENNA 50/8.6MG TAB PO SCH (10:11)
[2022-05-08] MEDS ORDERED: HYDROmorphone INJ 1 MG/ML SYRINGE IV PRN (10:11)
[2022-05-08] MEDS ORDERED: NALOXONE HCL 0.4 MG/1 ML VIAL/CARP IV PRN (10:11)
[2022-05-08] MEDS ORDERED: METOCLOPRAMIDE HCL INJ 5 MG/ML 2 ML VIAL IV PRN (10:11)
[2022-05-08] MEDS ORDERED: MAGNESIUM HYDROXIDE SUSP 30 ML UDC PO PRN (10:11)
[2022-05-08] MEDS: ASPIRIN 81 MG ECTAB PO SCH ×2 (11:28→21:00)
[2022-05-08] MEDS: TAMSULOSIN HCL 0.4 MG CAP PO SCH (11:28)
[2022-05-08] MEDS: LORATADINE 10 MG TAB PO SCH (11:28)
[2022-05-08] MEDS: DOCUSATE SODIUM 100 MG CAP PO SCH ×2 (11:28→21:00)
[2022-05-08] MEDS: MULTIVITAMIN TAB PO SCH (11:28)
[2022-05-08] MEDS: OMEGA-3 (PURIFIED FISH OIL) 1 GM CAP PO SCH (11:28)
[2022-05-08] MEDS: valACYclovir HCL 500 MG TABLET PO SCH (11:29)
[2022-05-08] MEDS: ZINC SULFATE 220 MG CAPSULE PO SCH (11:29)
[2022-05-08] MEDS: EZETIMIBE 10 MG TABLET PO SCH (11:30)
[2022-05-08] MEDS: KETOROLAC TROMETHAMINE 15 MG/ML VIAL IV SCH ×3 (11:36→22:30)
[2022-05-08] MEDS: SODIUM CHLORIDE 0.9% 1000ML 1,000 ML IV SCH (11:50)
[2022-05-08] MEDS: ADVANCED PROBIOTIC 1250 MG CAPSULE PO SCH (12:59)
--- NOTE | 2022-05-08 13:19 | Anesthesiology Progress Note ---
Date of Service May 08, 2022 Anesthesia Post Procedure Vital Signs Vital Signs: Temp Pulse Pulse Resp BP Pulse Ox O2 Del Method 05/08/22 12:20 97.7 F 66 18 119/81 97 Room Air 05/08/22 11:22 97.3 F L 64 18 120/75 96 Room Air 05/08/22 10:39 98.2 F 77 16 120/81 99 Room Air 05/08/22 10:11 97.7 F 74 16 117/73 100 Room Air 05/08/22 10:00 71 14 106/69 97 Room Air 05/08/22 09:50 73 15 105/68 98 Room Air 05/08/22 09:40 97.5 F L 70 15 102/68 98 Room Air 05/08/22 09:30 71 18 106/70 98 Room Air 05/08/22 09:20 73 18 109/66 98 Oxymask 05/08/22 09:10 73 18 97/63 L 98 Oxymask 05/08/22 09:00 82 16 103/73 98 Oxymask 05/08/22 08:54 98.2 F 81 22 103/64 98 Oxymask 05/08/22 05:42 97.7 F 80 20 140/92 95 Room Air O2 Flow Rate 05/08/22 12:20 05/08/22 11:22 05/08/22 10:39 05/08/22 10:11 05/08/22 10:00 05/08/22 09:50 05/08/22 09:40 05/08/22 09:30 05/08/22 09:20 2 05/08/22 09:10 2 05/08/22 09:00 4 05/08/22 08:54 6 05/08/22 05:42 Pain Intensity Bilateral Head: Pain Intensity: 2 Transfer of Care Handoff Completed per policy Notes Mental Status: alert / awake / arousable and participated in evaluation Patient Amnestic to Procedure: Yes Nausea / Vomiting: adequately controlled Pain: adequately controlled Airway Patency, RR, SpO2: stable & adequate BP & HR: stable & adequate Hydration State: stable & adequate Neuraxial Anesthesia: was administered and sensory block is resolving Anesthetic Complications: no major complications apparent and Pt Satisfied with anesthetic care
[2022-05-08] MEDS: ACETAMINOPHEN 500 MG TAB PO SCH ×2 (14:08→21:01)
[2022-05-08] MEDS: ceFAZolin 2000MG 2,000 MG/15 ML SYR IV SCH ×2 (14:10→22:30)
[2022-05-08] MEDS ORDERED: TRANEXAMIC ACID / 0.7% NACL 1,000 MG/100 ML BAG IV SCH (15:00)
[2022-05-08] MEDS: oxyCODONE HCL IR 5 MG TAB (IMMEDIATE RELEASE) PO PRN ×2 (15:41→22:30)
[2022-05-08] MEDS: ASCORBIC ACID 500 MG TAB PO SCH (17:38)
[2022-05-08] MEDS: Scopolamine CHECK PATCH PLACEMENT SCH ×2 (17:38→22:31)
[2022-05-08] MEDS ORDERED: SENNA 8.6 MG TAB PO SCH (21:00)
[2022-05-09] MEDS: SODIUM CHLORIDE 0.9% 1000ML 1,000 ML IV SCH (00:51)
[2022-05-09] MEDS: KETOROLAC TROMETHAMINE 15 MG/ML VIAL IV SCH ×2 (05:52→10:37)
[2022-05-09] MEDS: ACETAMINOPHEN 500 MG TAB PO SCH ×2 (05:55→14:17)
[2022-05-09] MEDS ORDERED: dexAMETHasone 10 MG in SYRINGE 0 ML IV SCH (08:00)
[2022-05-09 08:15] LABS: Hematocrit (blood only) 42.6 % (40.1-51.0); Mean Corpuscular Hemoglobin 30.5 pg (25.0-34.0); Mean Corpuscular Hgb Conc 35.2 g/dL (32.0-36.0); Mean Corpuscular Volume 86.6 fL (80.0-100.0); Mean Platelet Volume 9.2 fL (9.4-12.4); Platelet Count 158 K/uL (130-400); RDW Coefficient of Variation 12.4 % (11.5-14.5); RDW Standard Deviation 39.1 fL (36.4-46.3); Red Blood Count 4.92 M/uL (4.63-6.08); White Blood Count 9.18 K/ul (4.8-10.8)
[2022-05-09 08:36] LABS: BUN Creatinine Ratio 11.5 (10-20); Creatinine Clr Calc Pharmacy 104.3 ml/min; Est GFR (African American) 94.4 ml/min; Est GFR (Non-African American) 81.5 ml/min; Potassium 4.4 mmol/L (3.5-5.1)
[2022-05-09] MEDS: oxyCODONE HCL IR 5 MG TAB (IMMEDIATE RELEASE) PO PRN (10:36)
[2022-05-09] MEDS: ZINC SULFATE 220 MG CAPSULE PO SCH (10:37)
[2022-05-09] MEDS: TAMSULOSIN HCL 0.4 MG CAP PO SCH (10:37)
[2022-05-09] MEDS: valACYclovir HCL 500 MG TABLET PO SCH (10:37)
[2022-05-09] MEDS: LORATADINE 10 MG TAB PO SCH (10:38)
[2022-05-09] MEDS: MULTIVITAMIN TAB PO SCH (10:38)
[2022-05-09] MEDS: EZETIMIBE 10 MG TABLET PO SCH (10:38)
[2022-05-09] MEDS: ADVANCED PROBIOTIC 1250 MG CAPSULE PO SCH (10:38)
[2022-05-09] MEDS: ASCORBIC ACID 500 MG TAB PO SCH (10:39)
[2022-05-09] MEDS: ASPIRIN 81 MG ECTAB PO SCH (10:39)
[2022-05-09] MEDS: DOCUSATE SODIUM 100 MG CAP PO SCH (10:39)
[2022-05-09] MEDS: Scopolamine CHECK PATCH PLACEMENT SCH ×2 (10:40→15:09)
[2022-05-09] MEDS: OMEGA-3 (PURIFIED FISH OIL) 1 GM CAP PO SCH (11:13)
--- NOTE | 2022-05-09 15:27 | Progress Notes ---
DATE OF SERVICE: 05/09/2022. SUBJECTIVE: A 67-year-old gentleman postoperative day 1 from a right knee replacement. He is doing pretty well. Therapy went well. Pain is controlled. No chest pain or shortness of breath. Not fee ling dizzy or lightheaded. Hoping to go home. OBJECTIVE: VITAL SIGNS: Temperature is 36.7. Vital signs are stable. GENERAL: Shows a pleasant middle-aged male. He is sitting up in bed and talking to his , looks comfortable. LUNGS: Clear to auscultation. HEART: Has a regular rate and rhythm. ABDOMEN: Soft, nontender, nondistended. EXTREMITIES: Grossly neurovascularly intact except as follows. Examination of the right leg reveals the dressing to be clean, dry and intact. There is no drainage. He can dorsiflex and plantarflex his foot appropriately. He is neurologically intact. LABORATORY DATA: Hemoglobin 15.0. Hematocrit 42.6. Electrolytes are stable. ASSESSMENT: A 67-year-old gentleman postoperative day 1 from right knee replacement, doing pretty we ll. Pain is controlled. He is neurologically intact. PLAN: 1. DVT prophylaxis includes thigh-high TEDs, SCDs, and aspirin twice a day. 2. PT/OT, weightbear as tolerated. Right total knee protocol. 3. Pain control, doing okay with current pain regimen. 4. Disposition: Plan to discharge to home with some home health likely later today. Job ID: [id number]
--- NOTE | 2022-05-15 06:41 | Discharge Summary ---
Date of Service May 15, 2022 Discharge Data Procedures Performed Operation Date: 05/08/22 07:00 Actual Procedures p Right Total Knee Arthroplasty(Right) - Baldemar Bernal MD Hospital Course (1) Status post total right knee replacement: This is a 67 year old patient admitted on 05/08/22 and underwent total knee arthroplasty. He tolerated the procedure well and there were no complications. T ransferred to the PACU post op and later to the orthopedic floor for further care. He was given ancef for antibiotic prophylaxis. He was also given SAM stockings, SCDs, and aspirin for DVT prophylaxis. Hemoglobin, hematocrit, and vital signs were monitored during his hospital stay and remained stable. Did not require any blood transfusions. There were no complications during his hospital stay. By post op day #1 the patient was tolerating a regular diet, pain was reasonably controlled with oral pain medicine, and he was participating in physical therapy. On post op day #1 the patient was discharged home and set up with home health care. He was given printed discharge instructions including prescriptions for extra strength tylenol, aspirin, cefadroxil, ketorolac, zofran, senokot, flomax, and oxycodone. Continue physical therapy, weight bearing as tolerated. Continue SAM stockings. Follow up approximately 2 weeks post op or sooner if there are problems or concerns. Coding Level of Care Code None Diagnoses Status post total right knee replacement Z96.651
== END 2022-05-09 16:26 | disposition home health service (06) ==
LOC: 3E 05:06 → ASU 05:06